=== PATIENT | male | born 1975 | race Caucasian/White ===

== ENCOUNTER 2024-04-08 08:47 | Emergency (ER) | payer OTHER, SELFPAY ==
--- NOTE | ~2024-04-08 | XR_ITS ---
XR chest 2V Ordering provider: Patrick Calderón MD History: 48 years Male with . COUGH . Comparison: None. FINDINGS: MEDIASTINUM: The cardiac silhouette is not enlarged. LUNGS: No effusions or pneumothorax. Pleural thickening seen in the right mid thorax. CT further eval uation advised. Loss of silhouette of the left hemidiaphragm is seen which may indicate adjacent atelectasis versus p neumonia. OTHER: No free air under the diaphragm. IMPRESSION: Loss of silhouette of the left hemidiaphragm which may indicate adjacent atelectasis versus pneumonia . Follow-up advised. Pleural thickening seen in the right midzone. Follow-up and further evaluation advised. Reviewed, dictated and finalized at location A. N RESOURCES MANAGER IMPRESSION: Loss of silhouette of the left hemidiaphragm which may indicate adjacent atelec tasis versus pneumonia. Follow-up advised. Pleural thickening seen in the right midzone. Follow-up and further evaluation advised.
[2024-04-08 08:49] VITALS: BP 146/83; PULSE 100; TEMP 36.4; O2SAT 100
[2024-04-08 10:54] LABS: Influenza A QL RT-PCR Negative (Negative); Influenza B QL RT-PCR Negative (Negative); RSV RNA, RT-PCR Negative (Negative); SARS-CoV-2 RNA PCR Negative (Negative)
[2024-04-08 12:19] LABS: Basophils Absolute Auto 0.1 K/mm3 (0.0-0.1); Basophils Percent Auto 0.7 % (0.2-1.2); Eosinophils Absolute Auto 0.4 K/mm3 (0-0.3); Eosinophils Percent Auto 4.2 % (0-4.4); Hematocrit 47.7 % (42.0-52.0); Hemoglobin 15.1 g/dL (14.0-18.0); Immature Granulocyte Absolute 0.04 K/mm3 (0.00-0.031); Immature Granulocyte Percent A 0.4 % (0-0.5); Lymphocytes Absolute Auto 2.35 K/mm3 (0.9-3.2); Mean Corpuscular HGB Conc 31.7 g/dl (32-36); Mean Corpuscular Hemoglobin 27.2 pg (26-34); Mean Corpuscular Volume 85.8 fl (80-100); Monocytes Absolute Auto 0.9 K/mm3 (0.1-0.6); Monocytes Percent Auto 9.1 % (2.6-8.5); Neutrophils Absolute Auto 6.4 K/mm3 (1.3-6.7); Neutrophils Percent Auto 62.6 % (45.5-73.1); Platelet Count Result 393 k/mm3 (150-375); Red Blood Count 5.56 M/mm3 (4.6-6.20); White Blood Count 10.2 K/mm3 (4.5-10.0)
--- NOTE | 2024-04-08 12:36 | ED_ITS ---
HPI - URI/Sore Throat General Chief Complaint: Upper Respiratory Infection <Angela Leon APRN - Last Filed: 04/08/24 12:39> Stated Complaint: cough x 1 mos <Angela Leon APRN - Last Filed: 04/08/24 12:39> Time Seen by Provider: 04/08/24 12:30 <Angela Leon APRN - Last Filed: 04/08/24 12:39> Focused HPI: patient is a 48-year-old male who presents to the ER with complaints a dry cough has been going on for the past month but has recently caused him to have episodes of blackouts. Patient reports he went to urgent care where they started him on antibiotics. He denies tobacco use and any respiratory history besides COVID x2. Patient reports he thinks he has loose ribs because he has been coughing so much. Patient denies chest pain, fevers, or wheezing. GENERAL: Well-appearing, well-nourished, and in no acute distress. HEAD: Normocephalic, atraumatic. CHEST: Clear to auscultation. ?No respiratory distress. HEART: Regular rate and rhythm.? NEURO: ?Alert and oriented x3. Patient screened in triage and initial orders placed.? ?Additional care and disposition to be based upon?diagnostic testing and treatment. <Angela Leon APRN - Last Filed: 04/08/24 12:39> Related Data Allergies/Adverse Reactions: Allergies Allergy/AdvReac Type Severity Reaction Status Date / Time amoxicillin Allergy Rash Verified 04/08/24 13:48 promethazine Allergy Rash Verified 04/08/24 13:48 <Angela Leon APRN - Last Filed: 04/08/24 12:39> Review of Systems Review of Systems: All systems reviewed & are unremarkable except as noted in HPI and below <Edilson Rice MD - Last Filed: 04/08/24 19:42> Exam Narrative: APPEARANCE: Well appearing, no pain, no distress, well-nourished. HEAD: normocephalic, atraumatic. EYES: PERRLA/EOMI, conjunctivae clear. NOSE: Normal no drainage EARS:TMS clear with good light reflex. THROAT: Pharynx clear, no exudate. NECK: Supple. No adenopathy, no masses. RESPIRATORY: Airway patent, respirations nonlabored. Clear to auscultation bilaterally, no rales, rhonchi, wheezing. CARDIOVASCULAR: Regular rate and rhythm without murmurs rubs or gallops. ABDOMINAL: Soft, nontender, nondistended, normal bowel sounds MUSCULOSKELETAL: Moves all extremities. Strength/ROM intact, No edema, No calf tenderness. NEURO: Alert. Cranial nerves II through XII intact. Grossly intact SKIN: Warm, dry. Normal Color <Edilson Rice MD - Last Filed: 04/08/24 19:42> Course Vital Signs Vital signs: Vital Signs Temperature 97.6 F 04/08/24 08:49 Pulse Rate 100 04/08/24 08:49 Blood Pressure 146/83 H 04/08/24 08:49 Pulse Oximetry 100 04/08/24 08:49 Oxygen Delivery Room Air 04/08/24 08:49 Temperature 97.6 F 04/08/24 08:49 Pulse Rate 78 04/08/24 13:40 Respiratory Rate 16 04/08/24 13:40 Blood Pressure 130/80 04/08/24 13:40 Pulse Oximetry 98 04/08/24 13:40 Oxygen Delivery Room Air 04/08/24 12:30 <Angela Leon APRN - Last Filed: 04/08/24 12:39> Vital Signs Temperature 97.6 F 04/08/24 08:49 Pulse Rate 100 04/08/24 08:49 Blood Pressure 146/83 H 04/08/24 08:49 Pulse Oximetry 100 04/08/24 08:49 Oxygen Delivery Room Air 04/08/24 08:49 Temperature 97.6 F 04/08/24 08:49 Pulse Rate 78 04/08/24 13:40 Respiratory Rate 16 04/08/24 13:40 Blood Pressure 130/80 04/08/24 13:40 Pulse Oximetry 98 04/08/24 13:40 Oxygen Delivery Room Air 04/08/24 12:30 <Edilson Rice MD - Last Filed: 04/08/24 19:42> MDM - URI/Sore Throat MDM Narrative Medical decision making narrative: 48-year-old male presents emergency department for evaluation for persi stent cough and congestion for the last month. Patient did take a course of azithromycin. Patient is afebrile with a leukocytosis of 10.2 and hemoglobin of 15.1, no significant abnormalities on the patient's CMP patient was negative for influenza RSV and for COVID, chest x-ray shows atelectasis versus pneumonia, due to the duration of the patient's symptoms he is being treated for pneumonia and patient was started on azithromycin and doxycycline. Patient was also provided to be drawn Yeny Perez for symptom control. Patient was encouraged of close follow-up with primary care physician. All questions concerns were addressed. <Edilson Rice MD - Last Filed: 04/08/24 19:42> Differential Diagnosis Differential diagnosis: Likely upper respiratory infection, viral infection, bronchitis, influenza and pharyngitis <Edilson Rice MD - Last Filed: 04/08/24 19:42> Lab Data Attestation: I reviewed the patient's lab results. <Edilson Rice MD - Last Filed: 04/08/24 19:42> Result diagrams: 04/08/24 12:10 04/08/24 12:10 <Angela Leon APRN - Last Filed: 04/08/24 12:39> Labs: Lab Results 04/08/24 04/08/24 Range/Units 10:03 12:10 WBC 10.2 H (4.5-10.0) K/mm3 RBC 5.56 (4.6-6.20) M/mm3 Hgb 15.1 (14.0-18.0) g/dL Hct 47.7 (42.0-52.0) % MCV 85.8 (80-100) fl MCH 27.2 (26-34) pg MCHC 31.7 L (32-36) g/dl RDW 14.0 (11.5-14.5) % Plt Count 393 H (150-375) k/mm3 MPV 9.0 (7.4-10.4) fl Immature Gran % (Auto) 0.4 (0-0.5) % Neut % (Auto) 62.6 (45.5-73.1) % Lymph % (Auto) 23.0 (18.3-44.2) % [place] % (Auto) 9.1 H (2.6-8.5) % Eos % (Auto) 4.2 (0-4.4) % Baso % (Auto) 0.7 (0.2-1.2) % Lymph # (Auto) 2.35 (0.9-3.2) K/mm3 [place] # (Auto) 0.9 H (0.1-0.6) K/mm3 Eos # (Auto) 0.4 H (0-0.3) K/mm3 Baso # (Auto) 0.1 (0.0-0.1) K/mm3 Abs Immat Gran (auto) 0.04 H (0.00-0.031) K/mm3 Absolute Neuts (auto) 6.4 (1.3-6.7) K/mm3 Absolute Nucleated RBC 0.000 (0.0-0.012) K/mm3 Nucleated RBC % 0.0 (0.0-0.2) % Sodium 139 (137-145) mmol/L Potassium 4.6 (3.4-5.0) mmol/L Chloride 103 (98-107) mmol/L Carbon Dioxide 29 (22-30) mmol/L Anion Gap 7 (4-12) mmol/L BUN 16 (9-20) mg/dL Creatinine 1.00 (0.7-1.3) mg/dL Estim Creat Clear Calc 101 ml/min Estimated GFR > 60 (59 - ) Glucose 94 (65-110) mg/dL Calcium 9.6 (8.4-10.2) mg/dL Total Bilirubin 0.9 (0.2-1.3) mg/dL AST 42 (17-59) U/L ALT 56 H (6-50) U/L Alkaline Phosphatase 112 (38-126) U/L Total Protein 9.0 H (6.3-8.2) g/dL Albumin 4.4 (3.5-5.1) g/dL Influenza A (RT-PCR) Negative (Negative) Influenza B (RT-PCR) Negative (Negative) RSV (RT-PCR) Negative (Negative) SARS-CoV-2 RNA (RT-PCR) Negative (Negative) <Angela Leon, HEAD STRENGTH AND CONDITIONING COACH - Last Filed: 04/08/24 12:39> Lab Results 04/08/24 04/08/24 Range/Units 10:03 12:10 WBC 10.2 H (4.5-10.0) K/mm3 RBC 5.56 (4.6-6.20) M/mm3 Hgb 15.1 (14.0-18.0) g/dL Hct 47.7 (42.0-52.0) % MCV 85.8 (80-100) fl MCH 27.2 (26-34) pg MCHC 31.7 L (32-36) g/dl RDW 14.0 (11.5-14.5) % Plt Count 393 H (150-375) k/mm3 MPV 9.0 (7.4-10.4) fl Immature Gran % (Auto) 0.4 (0-0.5) % Neut % (Auto) 62.6 (45.5-73.1) % Lymph % (Auto) 23.0 (18.3-44.2) % [place] % (Auto) 9.1 H (2.6-8.5) % Eos % (Auto) 4.2 (0-4.4) % Baso % (Auto) 0.7 (0.2-1.2) % Lymph # (Auto) 2.35 (0.9-3.2) K/mm3 [place] # (Auto) 0.9 H (0.1-0.6) K/mm3 Eos # (Auto) 0.4 H (0-0.3) K/mm3 Baso # (Auto) 0.1 (0.0-0.1) K/mm3 Abs Immat Gran (auto) 0.04 H (0.00-0.031) K/mm3 Absolute Neuts (auto) 6.4 (1.3-6.7) K/mm3 Absolute Nucleated RBC 0.000 (0.0-0.012) K/mm3 Nucleated RBC % 0.0 (0.0-0.2) % Sodium 139 (137-145) mmol/L Potassium 4.6 (3.4-5.0) mmol/L Chloride 103 (98-107) mmol/L Carbon Dioxide 29 (22-30) mmol/L Anion Gap 7 (4-12) mmol/L BUN 16 (9-20) mg/dL Creatinine 1.00 (0.7-1.3) mg/dL Estim Creat Clear Calc 101 ml/min Estimated GFR > 60 (59 - ) Glucose 94 (65-110) mg/dL Calcium 9.6 (8.4-10.2) mg/dL Total Bilirubin 0.9 (0.2-1.3) mg/dL AST 42 (17-59) U/L ALT 56 H (6-50) U/L Alkaline Phosphatase 112 (38-126) U/L Total Protein 9.0 H (6.3-8.2) g/dL Albumin 4.4 (3.5-5.1) g/dL Influenza A (RT-PCR) Negative (Negative) Influenza B (RT-PCR) Negative (Negative) RSV (RT-PCR) Negative (Negative) SARS-CoV-2 RNA (RT-PCR) Negative (Negative) <Edilson Rice MD - Last Filed: 04/08/24 19:42> Imaging Data Radiologist's impression: Impressions Chest X-Ray 04/08/24 10:27 IMPRESSION: Loss of silhouette of the left hemidiaphragm which may indicate adjacent atelectasis versus pneumonia. Follow-up advised. Pleural thickening seen in the right midzone. Follow-up and further evaluation advised. <Edilson Rice MD - Last Filed: 04/08/24 19:42> Discharge Plan Discharge Clinical Impression: Upper respiratory infection <Angela Leon APRN - Last Filed: 04/08/24 12:39> Patient Disposition: Home, Self-Care <Angela Leon APRN - Last Filed: 04/08/24 12:39> Condition: Stable <Angela Leon APRN - Last Filed: 04/08/24 12:39> Instructions: Antibiotic Form <Angela Leon APRN - Last Filed: 04/08/24 12:39> Additional Instructions: Antibiotic as directed until completed. Tessalon Perles for cough and albuterol inhaler for cough and shortness breath. Have close follow-up with your primary care physician. <Angela Leon APRN - Last Filed: 04/08/24 12:39> Prescriptions: New doxycycline monohydrate 100 mg tablet 100 mg PO BID Qty: 14 0RF azithromycin 250 mg tablet See Rx Instructions .ROUTE .COMPLEX Qty: 6 0RF Rx Instructions: For 250 mg dose pack: take 500 mg today (day 1), then 250 mg for 4 days (days 2-5) benzonatate 100 mg capsule 100 mg PO TID PRN (Reason: cough) Qty: 20 0RF albuterol sulfate 90 mcg/actuation HFA aerosol inhaler 1 inh inhalation QID PRN (Reason: shortness of breath or wheezing) Qty: 6.7 0RF <Angela Leon APRN - Last Filed: 04/08/24 12:39> Follow-up/Referrals: PHYSICIAN,SCRAPER OPERATOR [Non-Staff] - <Angela Leon APRN - Last Filed: 04/08/24 12:39>
[2024-04-08 12:38] LABS: Alanine Aminotransferase 56 U/L (6-50); Albumin Level 4.4 g/dL (3.5-5.1); Alkaline Phosphatase 112 U/L (38-126); Anion Gap 7 mmol/L (4-12); Aspartate Amino Transferase 42 U/L (17-59); Bilirubin,Total 0.9 mg/dL (0.2-1.3); Blood Urea Nitrogen 16 mg/dL (9-20); Calcium 9.6 mg/dL (8.4-10.2); Carbon Dioxide 29 mmol/L (22-30); Chloride 103 mmol/L (98-107); Estimated CRCL calculation 101 ml/min; Estimated Glomerular Filt Rate > 60; Glucose 94 mg/dL (65-110); Potassium 4.6 mmol/L (3.4-5.0); Sodium 139 mmol/L (137-145)
[2024-04-08] MEDS: DOXYCYCLINE HYCLATE 100 MG TABLET PO (13:35)
[2024-04-08] MEDS: AZITHROMYCIN 250 MG TABLET 500 MG PO (13:35)
[2024-04-08 13:40] VITALS: BP 130/80; PULSE 78; RESP 16; O2SAT 98
== END 2024-04-08 13:40 | disposition home or self-care (01) ==
LOC: ANHED 13:09
PROVIDERS: Emergency Medicine; Emergency Provider Emergency Medicine
DX: J06.9 Acute upper respiratory infection, unspecified (principal); Z20.822 Contact with and (suspected) exposure to COVID-19
CPT/HCPCS: 36415; 71046; 80053; 85025; 87637; 99283; A9270